=== PATIENT | female | born 1985 | race African-American/Black ===

== ENCOUNTER 2017-04-05 14:48 | Emergency (ER) | payer MEDICAID ==
[~2017-04-05] VITALS: Ht 170.2 cm; Wt 71.8 kg
[~2017-04-05 14:48] MED LIST: [UNRECOGNIZED DRUG - CODE] PO
[2017-04-05 14:50] VITALS: BP 131/72; PULSE 106; RESP 16; TEMP 98.3; O2SAT 100
[2017-04-05 16:40] LABS: AUTOMATED NEUTROPHIL # 5.1 TH/MM3 (1.8-7.7); BASOPHIL % 0.5 % (0.0-2.0); HEMATOCRIT 35.2 % (35.0-46.0); HEMOGLOBIN 12.5 GM/DL (11.6-15.3); LYMPH % 23.8 % (9.0-44.0); LYMPHOCYTE # 1.7 TH/MM3 (1.0-4.8); MEAN CELL VOLUME 85.8 FL (80.0-100.0); MEAN CORPUSCULAR HEMOGLOBIN 30.4 PG (27.0-34.0); MEAN CORPUSCULAR HGB CONC 35.5 % (32.0-36.0); MEAN PLATELET VOLUME 7.1 FL (7.0-11.0); MONO % 4.9 % (0.0-8.0); MONOCYTE # 0.4 TH/MM3 (0-0.9); NEUT % 70.8 % (16.0-70.0); PLATELET COUNT 268 TH/MM3 (150-450); RED CELL DISTRIBUTION WIDTH 13.5 % (11.6-17.2); WHITE BLOOD COUNT 7.2 TH/MM3 (4.0-11.0)
[2017-04-05 16:44] LABS: BACTERIA, URINE FEW /hpf; BILIRUBIN, URINE NEG (NEG); BLOOD, URINE NEG (NEG); GLUCOSE,URINE NEG (NEG); KETONE, URINE 40 mg/dL (NEG); NITRITE,URINE NEG (NEG); PH, URINE 6.5 (5.0-8.5); SQUAMOUS EPITHELIAL CELL URINE 3 /hpf (0-5); URINE COLOR YELLOW (YELLW/STRAW); URINE LEUKOCYTE ESTERASE MOD (NEG)
[2017-04-05 16:55] LABS: ALBUMIN 3.9 GM/DL (3.4-5.0); ALT (GPT) 15 U/L (10-53); AST (GOT) 13 U/L (15-37); BICARBONATE 24.3 MEQ/L (21.0-32.0); BLOOD UREA NITROGEN 8 MG/DL (7-18); CALCIUM 8.8 MG/DL (8.5-10.1); CHLORIDE 105 MEQ/L (98-107); CREATININE 0.83 MG/DL (0.50-1.00); GLOMERULAR FILTRATION RATE 98 ML/MIN (>89); GLUCOSE,RANDOM 87 MG/DL (74-106); LIPASE 89 U/L (73-393); SODIUM (NA) 138 MEQ/L (136-145)
[2017-04-05 16:57] LABS: ALKALINE PHOSPHATASE 41 U/L (45-117); TOTAL BILIRUBIN ADULT 0.4 MG/DL (0.2-1.0); TOTAL PROTEIN 8.6 GM/DL (6.4-8.2)
[2017-04-05 18:00] VITALS: BP 124/83; PULSE 89; RESP 16; TEMP 97.9; O2SAT 99
[2017-04-05] MEDS ORDERED: PORTTAB PO (18:00)
--- NOTE | 2017-04-05 18:00 | PD ---
HPI Chief Complaint: Abdominal Pain Time Seen by Provider: 17:59 Travel History International Travel<30 days: No Contact w/Intl Traveler<30days: No Traveled to known affect area: No History of Present Illness HPI 31-year-old female came to the emergency room with history of left lower quadrant/adnexal pain. Patient's last menstrual period was March 22. Patient has had unprotected sex. She denies any foul-smelling vaginal discharge. Denies any dysuria. The pain has been there for past 2 days. Vital signs are stable. She does not appear to be in significant distress. There was blood work and UA done in triage prior to patient coming in. [facility] Past Medical History Narrative Medical List of her past medical, surgical, social and family history reviewed from the nursing note. Hx Anticoagulant Therapy: No Cardiovascular Problems: No Chemotherapy: No Cerebrovascular Accident: No Diabetes: No Respiratory: No ?: Unknown Para: 2 Past Surgical History Hysterectomy: No Social History Alcohol Use: No Tobacco Use: No Substance Use: No Allergies-Medications (Allergen,Severity, Reaction): Coded Allergies: No Known Allergies (Verified Adverse Reaction, Unknown, 04/05/17) Comments No known drug allergies. Reported Meds & Prescriptions Reported Meds & Active Scripts Active Reported Mom[place]-28 (Levonorgestrel-Ethinyl Estradiol) 0.15-30 mg-mcg Tab 1 Tab PO DAILY Narrative Medication List of her home medications reviewed from the nursing note. Review of Systems Except as stated in HPI: all other systems reviewed are Neg Genitourinary: Positive: Pelvic Pain Physical Exam Narrative GENERAL: Awake, alert, no obvious distress. SKIN: Focused skin assessment warm/dry. HEAD: Atraumatic. Normocephalic. EYES: Pupils equal and round. No scleral icterus. No injection or drainage. ENT: No nasal bleeding or discharge. Mucous membranes pink and moist. NECK: Trachea midline. No JVD. CARDIOVASCULAR: Regular rate and rhythm. No murmur appreciated. RESPIRATORY: No accessory muscle use. Clear to auscultation. Breath sounds equal bilaterally. GASTROINTESTINAL: Abdomen soft, non-tender, nondistended. Hepatic and splenic margins not palpable. : External inspection normal. Speculum exam shows normal discharge from the cervix and vaginal vault. Swabs were collected. No CMT but patient did have some left adnexal tenderness. MUSCULOSKELETAL: No obvious deformities. No clubbing. No cyanosis. No edema. NEUROLOGICAL: Awake and alert. No obvious cranial nerve deficits. Motor grossly within normal limits. Normal speech. PSYCHIATRIC: Appropriate mood and affect; insight and judgment normal. Data Data Last Documented VS Vital Signs Date Time Temp Pulse Resp B/P (MAP) Pulse Ox O2 Delivery O2 Flow Rate FiO2 04/05/17 18:00 97.9 89 16 124/83 (97) 99 Room Air Orders Orders Complete Blood Count With Diff (04/05/17 15:16) Comprehensive Metabolic Panel (04/05/17 15:16) Lipase (04/05/17 15:16) Urinalysis - C+S If Indicated (04/05/17 15:16) Ed Urine Pregnancytest Poc (04/05/17 15:16) Gc And Chlamydia Pcr (04/05/17 18:10) Wet Prep Profile (04/05/17 18:10) Ed Discharge Order (04/05/17 18:59) Labs Laboratory Tests Test 04/05/17 16:08 04/05/17 18:15 White Blood Count 7.2 TH/MM3 Red Blood Count 4.10 MIL/MM3 Hemoglobin 12.5 GM/DL Hematocrit 35.2 % Mean Corpuscular Volume 85.8 FL Mean Corpuscular Hemoglobin 30.4 PG Mean Corpuscular Hemoglobin Concent 35.5 % Red Cell Distribution Width 13.5 % Platelet Count 268 TH/MM3 Mean Platelet Volume 7.1 FL Neutrophils (%) (Auto) 70.8 % Lymphocytes (%) (Auto) 23.8 % Monocytes (%) (Auto) 4.9 % Eosinophils (%) (Auto) 0.0 % Basophils (%) (Auto) 0.5 % Neutrophils # (Auto) 5.1 TH/MM3 Lymphocytes # (Auto) 1.7 TH/MM3 Monocytes # (Auto) 0.4 TH/MM3 Eosinophils # (Auto) 0.0 TH/MM3 Basophils # (Auto) 0.0 TH/MM3 CBC Comment DIFF FINAL Differential Comment Urine Color YELLOW Urine Turbidity CLEAR Urine pH 6.5 Urine Specific [place] 1.010 Urine Protein NEG mg/dL Urine Glucose (UA) NEG mg/dL Urine Ketones 40 mg/dL Urine Occult Blood NEG Urine Nitrite NEG Urine Bilirubin NEG Urine Urobilinogen LESS THAN 2.0 MG/DL Urine Leukocyte Esterase MOD Urine RBC 1 /hpf Urine WBC 5 /hpf Urine Squamous Epithelial Cells 3 /hpf Urine Bacteria FEW /hpf Microscopic Urinalysis Comment CULT NOT INDICATED Blood Urea Nitrogen 8 MG/DL Creatinine 0.83 MG/DL Random Glucose 87 MG/DL Total Protein 8.6 GM/DL Albumin 3.9 GM/DL Calcium Level 8.8 MG/DL Alkaline Phosphatase 41 U/L Aspartate Amino Transf (AST/SGOT) 13 U/L Alanine Aminotransferase (ALT/SGPT) 15 U/L Total Bilirubin 0.4 MG/DL Sodium Level 138 MEQ/L Potassium Level 3.7 MEQ/L Chloride Level 105 MEQ/L Carbon Dioxide Level 24.3 MEQ/L Anion Gap 9 MEQ/L Estimat Glomerular Filtration Rate 98 ML/MIN Lipase 89 U/L Clue Cells (Wet Prep) NONE SEEN Vaginal Trichomonas (Wet Prep) NONE SEEN Vaginal Yeast (Wet Prep) NONE SEEN Chlamydia trachomatis DNA (PCR) NOT DETECTED Neisseria gonorrhoeae DNA (PCR) NOT DETECTED MDM Medical Decision Making Medical Screen Exam Complete: Yes Emergency Medical Condition: Yes Medical Record Reviewed: Yes Differential Diagnosis , STD, ovarian cyst Narrative Course 6:28 PM. Awaiting for the wet prep. The discharge did not look significant enough for me to prophylactically treat her. Based on the wet prep I may send her home on antibiotic or not. She might be an ovarian cyst and tenderness from the ovarian cyst on the left side. Procedures EKG Prior to Arrival: No Diagnosis Primary Impression: Pelvic pain in female Additional Impression: Possible ovarian cyst Referrals: Primary Care Physician 2 days Additional Instructions: Please take Motrin/Tylenol/Advil/ibuprofen for the pain. Follow-up with a [facility] specialist. Return to the ER if condition worsens or any other new concerns. Med/Other Pt SpecificInfo: No Change to Meds Disposition: 01 DISCHARGE HOME Condition: Stable Alex Beavers MD Apr 05, 2017 18:00
== END 2017-04-05 19:11 | disposition home or self-care (01) ==
LOC: NEPC 14:48
DX: R10.2 Pelvic and perineal pain (principal)
CPT/HCPCS: 80053; 81001; 83690; 84703; 85025; 87210; 87491; 87591; 99283

== ENCOUNTER 2017-07-13 09:14 | Emergency (ER) | payer MEDICAID ==
[~2017-07-13] VITALS: Ht 170.2 cm; Wt 65.0 kg
[~2017-07-13 09:14] MED LIST changes: +PORTTAB PO; -[UNRECOGNIZED DRUG - CODE] PO
[2017-07-13 09:21] VITALS: BP 136/75; PULSE 93; RESP 18; TEMP 98.9; O2SAT 100
[2017-07-13] MEDS ORDERED: SODIUM CHLOR 0.9% 1000 ML INJ 1,000 ML IV SCH (09:38)
--- NOTE | 2017-07-13 09:44 | PD ---
HPI Chief Complaint: Dizziness Time Seen by Provider: 09:26 Travel History International Travel<30 days: No Contact w/Intl Traveler<30days: No Traveled to known affect area: No History of Present Illness HPI Patient is a 31-year-old female who presents the emergency room for blood work. Patient reports that for the past 2 days, she has been feeling really tired, reports that she has been feeling lightheaded and just weak. Patient reports that her mother made her come to the emergency room to check if she had diabetes. Patient did endorse that she ate a sandwich earlier today. Patient denies any headache, denies dizziness, reports lightheadedness. Patient denies any chest pain or shortness of breath. Patient denies any abdominal pain, denies any nausea or vomiting. Patient denies any fevers or chills, no sick contacts. Patient reports that overall, she feels rundown. Patient reports overall decreased appetite, reports that she drinks about 2 bottles of water per day at baseline PFSH Past Medical History Medical History: Denies Significant Hx Hx Anticoagulant Therapy: No Cardiovascular Problems: No Chemotherapy: No Cerebrovascular Accident: No Diabetes: No Diminished Hearing: No Respiratory: No ?: Not : 2 Para: 2 Past Surgical History Surgical History: No Previous Surgery Hysterectomy: No Social History Alcohol Use: No Tobacco Use: No Substance Use: No Allergies-Medications (Allergen,Severity, Reaction): Coded Allergies: No Known Allergies (Verified Adverse Reaction, Unknown, 07/13/17) Reported Meds & Prescriptions Reported Meds & Active Scripts Active Reported [place]-28 (Levonorgestrel-Ethinyl Estradiol) 0.15-30 mg-mcg Tab 1 Tab PO DAILY Physical Exam Narrative GENERAL: Mild distress SKIN: Focused skin assessment warm/dry. HEAD: Atraumatic. Normocephalic. EYES: Pupils equal and round. No scleral icterus. No injection or drainage. ENT: No nasal bleeding or discharge. Mucous membranes pink and moist. NECK: Trachea midline. No JVD. CARDIOVASCULAR: Regular rate and rhythm. No murmur appreciated. RESPIRATORY: No accessory muscle use. Clear to auscultation. Breath sounds equal bilaterally. GASTROINTESTINAL: Abdomen soft, non-tender, nondistended. Hepatic and splenic margins not palpable. MUSCULOSKELETAL: No obvious deformities. No clubbing. No cyanosis. No edema. NEUROLOGICAL: Awake and alert. No obvious cranial nerve deficits. Motor grossly within normal limits. Normal speech. PSYCHIATRIC: Appropriate mood and affect; insight and judgment normal. Data Data Last Documented VS Vital Signs Date Time Temp Pulse Resp B/P (MAP) Pulse Ox O2 Delivery O2 Flow Rate FiO2 07/13/17 09:53 100 Room Air 07/13/17 09:21 98.9 93 18 136/75 (95) Orders Orders Complete Blood Count With Diff (07/13/17 09:38) Comprehensive Metabolic Panel (07/13/17 09:38) Urinalysis - C+S If Indicated (07/13/17 09:38) Iv Access Insert/Monitor (07/13/17 09:38) Ecg Monitoring (07/13/17:38) Oximetry (07/13/17 09:38) Sodium Chlor 0.9% 1000 Ml Inj (Ns 1000 M (07/13/17 09:38) Sodium Chloride 0.9% Flush (Ns Flush) (07/13/17 09:45) Ed Urine Pregnancytest Poc (07/13/17 09:38) Sodium Chlor 0.9% 1000 Ml Inj (Ns 1000 M (07/13/17 09:45) Urine Culture (07/13/17 09:50) Ceftriaxone Inj (Rocephin Inj) (07/13/17 11:00) Labs Laboratory Tests Test 07/13/17 09:50 07/13/17 09:55 Urine Color YELLOW Urine Turbidity HAZY Urine pH 6.5 Urine Specific [place] 1.030 Urine Protein 30 mg/dL Urine Glucose (UA) NEG mg/dL Urine Ketones 10 mg/dL Urine Occult Blood MOD Urine Nitrite NEG Urine Bilirubin NEG Urine Urobilinogen 2.0 MG/DL Urine Leukocyte Esterase TRACE Urine RBC 3 /hpf Urine WBC 11 /hpf Urine Squamous Epithelial Cells 14 /hpf Urine Bacteria OCC /hpf Urine Mucus FEW /lpf Microscopic Urinalysis Comment CULTURE INDICATED White Blood Count 5.7 TH/MM3 Red Blood Count 4.60 MIL/MM3 Hemoglobin 13.6 GM/DL Hematocrit 40.7 % Mean Corpuscular Volume 88.6 FL Mean Corpuscular Hemoglobin 29.5 PG Mean Corpuscular Hemoglobin Concent 33.3 % Red Cell Distribution Width 13.3 % Platelet Count 263 TH/MM3 Mean Platelet Volume 7.1 FL Neutrophils (%) (Auto) 77.1 % Lymphocytes (%) (Auto) 18.2 % Monocytes (%) (Auto) 4.2 % Eosinophils (%) (Auto) 0.1 % Basophils (%) (Auto) 0.4 % Neutrophils # (Auto) 4.4 TH/MM3 Lymphocytes # (Auto) 1.0 TH/MM3 Monocytes # (Auto) 0.2 TH/MM3 Eosinophils # (Auto) 0.0 TH/MM3 Basophils # (Auto) 0.0 TH/MM3 CBC Comment DIFF FINAL Differential Comment Blood Urea Nitrogen 10 MG/DL Creatinine 0.99 MG/DL Random Glucose 82 MG/DL Total Protein 8.9 GM/DL Albumin 4.1 GM/DL Calcium Level 8.9 MG/DL Alkaline Phosphatase 41 U/L Aspartate Amino Transf (AST/SGOT) 18 U/L Alanine Aminotransferase (ALT/SGPT) 29 U/L Total Bilirubin 0.4 MG/DL Sodium Level 138 MEQ/L Potassium Level 3.8 MEQ/L Chloride Level 106 MEQ/L Carbon Dioxide Level 25.5 MEQ/L Anion Gap 7 MEQ/L Estimat Glomerular Filtration Rate 80 ML/MIN MDM Medical Decision Making Medical Screen Exam Complete: Yes Emergency Medical Condition: Yes Medical Record Reviewed: Yes Interpretation(s) Vital Signs Date Time Temp Pulse Resp B/P (MAP) Pulse Ox O2 Delivery O2 Flow Rate FiO2 07/13/17 09:21 98.9 93 18 136/75 (95) 100 Differential Diagnosis Dehydration, anemia, electrolyte abnormality Narrative Course Patient is a 31-year-old female who presents the emergency room with complaints of lightheadedness for the past 2 days. Patient requesting blood work to check for possible diabetes. Discussed with patient that she will need a hemoglobin A1c as well as a fasting blood sugar, she did eat this morning, patient advised to follow-up with primary care doctor for fasting blood work and for evaluation of possible diabetes. Patient reports that she drinks about 2 bottles of water per day, discussed with patient that she does need to drink more water as this could be a factor in her lightheadedness. Plan to obtain basic blood work, will hydrate with IV fluids. During the course of the patients emergency department visit, the patients history, examination, and differential diagnosis were reviewed with the patient. The patient was placed on a voice engineer with oximetry and frequent blood pressure monitoring. The patient had an IV access obtained and blood work sent for analysis. The patient was initially provided IV fluids. The patients laboratory studies were reviewed and remarkable for Laboratory Tests Test 07/13/17 09:50 07/13/17 09:55 Urine Color YELLOW (YELLW/STRAW) Urine Turbidity HAZY (CLEAR) Urine pH 6.5 (5.0-8.5) Urine Specific [place] 1.030 (1.002-1.035) Urine Protein 30 mg/dL (NEG-TRACE) Urine Glucose (UA) NEG mg/dL (NEG) Urine Ketones 10 mg/dL (NEG) Urine Occult Blood MOD (NEG) Urine Nitrite NEG (NEG) Urine Bilirubin NEG (NEG) Urine Urobilinogen 2.0 MG/DL (LESS THAN Urine Leukocyte Esterase TRACE (NEG) Urine RBC 3 /hpf (0-3) Urine WBC 11 /hpf (0-5) Urine Squamous Epithelial Cells 14 /hpf (0-5) Urine Bacteria OCC /hpf (NONE) Urine Mucus FEW /lpf (OCC) Microscopic Urinalysis Comment CULTURE INDICATED White Blood Count 5.7 TH/MM3 (4.0-11.0) Red Blood Count 4.60 MIL/MM3 (4.00-5.30) Hemoglobin 13.6 GM/DL (11.6-15.3) Hematocrit 40.7 % (35.0-46.0) Mean Corpuscular Volume 88.6 FL (80.0-100.0) Mean Corpuscular Hemoglobin 29.5 PG (27.0-34.0) Mean Corpuscular Hemoglobin Concent 33.3 % (32.0-36.0) Red Cell Distribution Width 13.3 % (11.6-17.2) Platelet Count 263 TH/MM3 (150-450) Mean Platelet Volume 7.1 FL (7.0-11.0) Neutrophils (%) (Auto) 77.1 % (16.0-70.0) Lymphocytes (%) (Auto) 18.2 % (9.0-44.0) Monocytes (%) (Auto) 4.2 % (0.0-8.0) Eosinophils (%) (Auto) 0.1 % (0.0-4.0) Basophils (%) (Auto) 0.4 % (0.0-2.0) Neutrophils # (Auto) 4.4 TH/MM3 (1.8-7.7) Lymphocytes # (Auto) 1.0 TH/MM3 (1.0-4.8) Monocytes # (Auto) 0.2 TH/MM3 (0-0.9) Eosinophils # (Auto) 0.0 TH/MM3 (0-0.4) Basophils # (Auto) 0.0 TH/MM3 (0-0.2) CBC Comment DIFF FINAL Differential Comment Blood Urea Nitrogen 10 MG/DL (7-18) Creatinine 0.99 MG/DL (0.50-1.00) Random Glucose 82 MG/DL (74-106) Total Protein 8.9 GM/DL (6.4-8.2) Albumin 4.1 GM/DL (3.4-5.0) Calcium Level 8.9 MG/DL (8.5-10.1) Alkaline Phosphatase 41 U/L (45-117) Aspartate Amino Transf (AST/SGOT) 18 U/L (15-37) Alanine Aminotransferase (ALT/SGPT) 29 U/L (10-53) Total Bilirubin 0.4 MG/DL (0.2-1.0) Sodium Level 138 MEQ/L (136-145) Potassium Level 3.8 MEQ/L (3.5-5.1) Chloride Level 106 MEQ/L (98-107) Carbon Dioxide Level 25.5 MEQ/L (21.0-32.0) Anion Gap 7 MEQ/L (5-15) Estimat Glomerular Filtration Rate 80 ML/MIN (>89) Lab work reviewed, UA positive for trace leuk esterase, 11 white blood cells, occasional bacteria, urine culture was sent. Patient was given IV dose of Rocephin for treatment of UTI. Patient reports that she is feeling much better after 2 L of fluid, I reviewed all labs with patient including all findings, I encouraged her to drink more water at home. Patient will be discharged with a prescription for antibiotics for UTI. She will follow up with cultures from today. Signs and symptoms of when to return to the emergency room was reviewed with the patient in detail. Diagnosis Primary Impression: UTI (urinary tract infection) Qualified Codes: N30.01 - Acute cystitis with hematuria Patient Instructions: General Instructions Additional Instructions: Please provide patient with a copy of their lab work and studies at discharge* * Please follow up with your primary care doctor in 2-3 days Return to the ER if symptoms worsen or progress Return to the ER as needed Please drink plenty of fluids Please take all antibiotics as prescribed Scripts Nitrofurantoin Monohydrate Macrocrystals (Macrobid) 100 Mg Cap 100 MG PO BID for Infection for 10 Days, #20 CAP 0 Refills Prov: Marge Mao DO 07/13/17 Disposition: 01 DISCHARGE HOME Condition: Stable Marge Mao DO July 13, 2017 09:44
[2017-07-13] MEDS ORDERED: SODIUM CHLORIDE 0.9% FLUSH 10 ML FLUSH IV FLUSH PRN (09:45)
[2017-07-13] MEDS ORDERED: SODIUM CHLOR 0.9% 1000 ML INJ 1,000 ML IV ONE (09:45)
[2017-07-13 09:53] VITALS: O2SAT 100
[2017-07-13 10:17] LABS: AUTOMATED NEUTROPHIL # 4.4 TH/MM3 (1.8-7.7); BASOPHIL % 0.4 % (0.0-2.0); EOSINOPHIL % 0.1 % (0.0-4.0); HEMATOCRIT 40.7 % (35.0-46.0); HEMOGLOBIN 13.6 GM/DL (11.6-15.3); LYMPH % 18.2 % (9.0-44.0); MEAN CELL VOLUME 88.6 FL (80.0-100.0); MEAN CORPUSCULAR HEMOGLOBIN 29.5 PG (27.0-34.0); MEAN CORPUSCULAR HGB CONC 33.3 % (32.0-36.0); MEAN PLATELET VOLUME 7.1 FL (7.0-11.0); MONO % 4.2 % (0.0-8.0); MONOCYTE # 0.2 TH/MM3 (0-0.9); NEUT % 77.1 % (16.0-70.0); PLATELET COUNT 263 TH/MM3 (150-450); RED CELL DISTRIBUTION WIDTH 13.3 % (11.6-17.2); WHITE BLOOD COUNT 5.7 TH/MM3 (4.0-11.0)
[2017-07-13 10:24] LABS: BACTERIA, URINE OCC /hpf; BILIRUBIN, URINE NEG (NEG); BLOOD, URINE MOD (NEG); GLUCOSE,URINE NEG (NEG); KETONE, URINE 10 mg/dL (NEG); MUCUS URINE FEW /lpf (OCC); NITRITE,URINE NEG (NEG); PH, URINE 6.5 (5.0-8.5); SQUAMOUS EPITHELIAL CELL URINE 14 /hpf (0-5); URINE COLOR YELLOW (YELLW/STRAW); URINE LEUKOCYTE ESTERASE TRACE (NEG)
[2017-07-13 10:40] LABS: ALBUMIN 4.1 GM/DL (3.4-5.0); ALT (GPT) 29 U/L (10-53); AST (GOT) 18 U/L (15-37); BICARBONATE 25.5 MEQ/L (21.0-32.0); BLOOD UREA NITROGEN 10 MG/DL (7-18); CALCIUM 8.9 MG/DL (8.5-10.1); CHLORIDE 106 MEQ/L (98-107); CREATININE 0.99 MG/DL (0.50-1.00); GLOMERULAR FILTRATION RATE 80 ML/MIN (>89); GLUCOSE,RANDOM 82 MG/DL (74-106); SODIUM (NA) 138 MEQ/L (136-145)
[2017-07-13 10:42] LABS: ALKALINE PHOSPHATASE 41 U/L (45-117); TOTAL BILIRUBIN ADULT 0.4 MG/DL (0.2-1.0); TOTAL PROTEIN 8.9 GM/DL (6.4-8.2)
[2017-07-13] MEDS ORDERED: cefTRIAXone INJ 1,000 MG in SODIUM CHLORIDE 0.9% INJ 100 ML IV ONE (11:00)
[2017-07-13] MEDS ORDERED: MACR100C2 PO (11:37)
== END 2017-07-13 11:58 | disposition home or self-care (01) ==
LOC: NEPD 09:14
DX: N30.01 Acute cystitis with hematuria (principal)
CPT/HCPCS: 80053; 81001; 84703; 85025; 87077; 87086; 87186; 96361; 96374; 99284; J0696; J7030